=== PATIENT | male | born 1970 | race Caucasian/White ===

== ENCOUNTER 2017-03-04 12:54 | Emergency (ER) | payer OTHER ==
[~2017-03-04] VITALS: Ht 175.3 cm; Wt 77.6 kg
[2017-03-04 12:57] VITALS: BP 147/91
[2017-03-04 16:49] VITALS: BP 131/85
== END 2017-03-04 16:48 | disposition home or self-care (01) ==
LOC: MED 12:54
DX: K40.20 Bilateral inguinal hernia, without obstruction or gangrene, not specified as recurrent (principal)
CPT/HCPCS: 81002; 93005; 99283